=== PATIENT | female | born 1990 | race African-American/Black ===

== ENCOUNTER → 2017-09-22 16:20 | Outpatient (CLI) | payer MEDICAID, SELFPAY ==
[2017-09-25 20:06] LABS: HSV 1 By PCR Positive (Negative)
[2017-09-26 08:45] LABS: HSV 2 By PCR Negative (Negative)
== END ==
PROVIDERS: Visit Provider Obstetrics & Gynecology
DX: Z11.3 Encounter for screening for infections with a predominantly sexual mode of transmission (principal)
CPT/HCPCS: 87529

== ENCOUNTER 2017-09-25 09:51 | Emergency (ER) | payer MEDICAID, SELFPAY ==
[2017-09-25 09:52] VITALS: BP 122/83; PULSE 127; RESP 18; TEMP 36.3; O2SAT 96; BMI 30.6
[2017-09-25] MEDS: oxyCODONE 5 MG Tablet 10 MG PO (10:33)
[2017-09-25 10:34] VITALS: PULSE 100; O2SAT 97
[2017-09-25] MEDS: Naproxen 500 MG Tablet PO (10:34)
[2017-09-25 12:12] VITALS: BP 113/86; PULSE 75; RESP 18; O2SAT 98
[2017-09-25 13:47] LABS: Mucous, Urine 0 SEEN /hpf (<or=2+); Squamous Epithelial Cells - UA 0 SEEN /hpf (5-10)
[2017-09-25 13:49] LABS: Color, Urine Yellow (Yellow); Glucose, Dipstick Normal (Normal); Ketone-Dipstick Negative (Negative); Leukocyte Esterase-Dipstick 500 /ul (Negative); Nitrite-Dipstick Negative (Negative); Occult Blood-Urine 250 /ul (Negative); Protein-Dipstick 15 mg/dl (Negative); Urine Bilirubin Dipstick Negative (Negative); Urine Clarity Cloudy (Clear); Urine Urobilinogen Normal (Normal)
[2017-09-25 13:50] LABS: Internal QC Validated? YES +Cl - CLEAR BKGD; Pregnancy, Urine Negative Negative
[2017-09-25 13:55] LABS: Red Blood Cells-Urine 5-10 SEEN /hpf (0-5); White Blood Cells 50-100 SEEN /hpf (0-5)
[2017-09-25 13:56] LABS: Bacteria 1+ /hpf (None Seen)
--- NOTE | 2017-09-25 14:18 | ED.VISSUMM ---
- ER Visit Summary Date of Service: 09/25/17 Chief Complaint: Vaginal ulcers History of Present Illness: The patient is a [address] Thayer and Dr. Stringer. She reports that she has had itching and pain to her vagina for approximately 10 days. She was using Vagisil and Monistat. She saw Dr. Thayer 3 days ago who had her stop this and place her on Diflucan. He did obtain cultures for herpes, but these have not returned. Patient denies any history of cold sores. She does report that her significant other has cold sores. She reports that her symptoms have worsened over the past [address] days[address] with [address] Gallego yesterday who prescribed Valtrex and dibucaine. She reports that she still has a burning pain that is 10 out of 10 with movement or urinating. It is 4 out of 10 otherwise. She reports that she is on her menstrual cycle now. 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 She denies any vaginal discharge. She has had dysuria, but no frequency. Physical Examination: Vitals: Stable. Afebrile. General: Well-nourished and well-developed. Head: Normocephalic atraumatic. Neck: Supple, no lymphadenopathy. No JVD. Nontender. Cardiovascular: Regular rate and rhythm. No murmurs. Respiratory: No respiratory distress. Clear to auscultation bilaterally. Abdominal: Soft, nontender, nondistended, normal bowel sounds. No guarding, rebound, or peritoneal signs. : External exam shows her to have kissing lesions on her labia minora bilaterally. There is moderate soft tissue swelling and severe tenderness to palpation. Back: Nontender. Extremities: Nontender, no edema. Skin: Normal color, no rash. Neurologic: Alert and oriented ?3. Cranial nerves II through XII are intact. Normal strength and sensation. Psych: Normal affect. Test Results: test is negative. Urinalysis has 5200 white blood cells and 5-10 red blood cells. 1+ bacteria. Gonorrhea and Chlamydia are pending. Emergency Department Course and Treatment: Patient was treated with naproxen and oxycodone p.o. When her urine returned she was given Cipro and Azo p.o. Treatment Plan: Patient was discussed with Dr. Thayer. She will have acyclovir ointment added. She will also be given a prescription for Ultram. Instructed follow-up in 3-5 days if not improving. Return to the emergency department for any worsening symptoms. Disposition: To home in improved and stable condition. Impression: 1. Lesions to labia minora. 2. UTI. This note was generated with [email or web address] dictation software. It may contain incorrect words, spelling, and punctuation that were not noted in review of the chart prior to signing ED Disposition - Plan for ED Patient: Chief Complaint: Female C/O Instructions: Herpes: Caring for Sores Prescriptions: traMADol [Ultram] 50 mg PO Q4H PRN PRN 3 Days #20 tablet PRN Reason: Pain Acyclovir 30 gm TP 5X/DAY #1 tube Phenazopyridine HCl [Pyridium] 200 mg PO BID PRN PRN #10 tablet PRN Reason: Pain Ciprofloxacin [Cipro] 500 mg PO BID #6 tablet Referrals: Arsenio Thayer MD [STAFF PHYSICIAN] - 3-5 Days if not improving
[2017-09-25] MEDS: Phenazopyridine 95 MG Tablet 190 MG PO (14:33)
[2017-09-25] MEDS: Ciprofloxacin 500 MG Tablet PO (14:34)
[2017-09-25 14:37] VITALS: BP 108/62; PULSE 84; RESP 18
[2017-09-25 15:51] LABS: Chlamydia Trachomatis by PCR Negative (Negative); Neisserai gonorrhoeae by PCR Negative (Negative); Probe Check PASS; Sample Adequacy Control PASS; Specimen Processing Control PASS
== END 2017-09-25 14:38 | disposition home or self-care (01) ==
PROVIDERS: Emergency Provider Emergency Medicine; Family Provider Student in an Organized Health Care Education/Training Program; PCP Student in an Organized Health Care Education/Training Program
DX: N90.89 Other specified noninflammatory disorders of vulva and perineum (principal); N39.0 Urinary tract infection, site not specified; R51 Headache
CPT/HCPCS: 81001; 81025; 87491; 87591; 99283

== ENCOUNTER → 2019-01-18 16:50 | Outpatient (CLI) | payer MEDICAID, SELFPAY ==
[2019-01-31 15:45] LABS: HPV Reflexed? NOT INDICATED
== END ==
PROVIDERS: Visit Provider Obstetrics & Gynecology
DX: Z12.4 Encounter for screening for malignant neoplasm of cervix (principal)
CPT/HCPCS: 87624; 88175; G0145

== ENCOUNTER → 2020-03-27 | Outpatient (CLI) | payer MEDICAID, SELFPAY ==
[2020-03-30 03:07] LABS: Chlamydia By Nucleic Acid AMP Positive (Negative)
[2020-04-01 04:27] LABS: Gonococcus By Nucleic Acid AMP Negative (Negative)
== END | disposition home or self-care (01) ==
LOC: LABSPEC 13:17
PROVIDERS: Visit Provider Obstetrics & Gynecology
DX: Z11.3 Encounter for screening for infections with a predominantly sexual mode of transmission (principal)
CPT/HCPCS: 87491; 87591

== ENCOUNTER → 2020-05-01 | Outpatient (CLI) | payer OTHER, MEDICAID, SELFPAY ==
[2020-05-04 03:06] LABS: Chlamydia By Nucleic Acid AMP Negative (Negative)
[2020-05-04 08:33] LABS: Gonococcus By Nucleic Acid AMP Negative (Negative)
== END | disposition home or self-care (01) ==
LOC: LABSPEC 17:01
PROVIDERS: Visit Provider Obstetrics & Gynecology
DX: Z11.3 Encounter for screening for infections with a predominantly sexual mode of transmission (principal)
CPT/HCPCS: 87491; 87591

== ENCOUNTER → 2020-08-14 | Outpatient (CLI) | payer MEDICAID, SELFPAY ==
[2020-08-16 03:07] LABS: Chlamydia By Nucleic Acid AMP Negative (Negative)
[2020-08-16 09:26] LABS: Gonococcus By Nucleic Acid AMP Negative (Negative)
== END | disposition home or self-care (01) ==
LOC: LABSPEC 11:34
PROVIDERS: Visit Provider Obstetrics & Gynecology
DX: Z11.3 Encounter for screening for infections with a predominantly sexual mode of transmission (principal)
CPT/HCPCS: 87491; 87591